=== PATIENT | male | born 1940 | race Caucasian/White ===

== ENCOUNTER → 2017-10-08 | Day surgery (SDC) | payer OTHER ==
[~2017-10-08] MED LIST: ACETAMINOPHEN 1000 MG/100 ML 100 ML IV ONE; ACETAMINOPHEN/HYDROcodone 325 MG/5 MG TAB ONE; BUPIVACAINE/EPINEPHRINE 0.5% PF 30 ML VIAL ONE; GLYCOPYRROLATE 0.2 MG/ML VIAL IV ONE; KETOROLAC TROMETHAMINE 30 MG/ML (IVP) VIAL IV PUSH ONE; LACTATED RINGER'S 1000 ML INJ 1,000 ML ONE; MIDAZOLAM HCL 2 MG/2 ML VIAL ONE; MORPHINE SULFATE 4 MG/ML INJ ONE; NEOSTIGMINE 3 MG/3 ML SYR IV ONE; ONDANSETRON HCL 4 MG/2 ML VIAL IV PUSH ONE; PROPOFOL 100 MG/10 ML INJ IV ONE; ROCURONIUM INJ 50 MG/5 ML VIAL IV ONE; ceFAZolin 2 GM PREMIX 50 ML ONE
--- NOTE | 2017-10-08 14:54 | PD.OP ---
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 The skill set of an LEARNING DESIGN SPECIALIST was medically necessary to provide improved efficiency and safety in the completion of this procedure. The neurosurgical nurse practitioner was at the back table providing appropriate instrumentation while the nurse practitioner directly assisted me through the entirety of the procedure. Indications for procedure This is a 76-year-old gentleman with bilateral inguinal hernias and umbilical hernia. He is experiencing intermittent abdominal and groin discomfort and desired operative repair. 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 Small umbilical hernia defect. Estimated blood loss less than 5 mL. Description of procedure in detail The patient was identified as Chris mason taken to the operating room placed in a supine position. Sequential compression device were placed on bilateral lower extremities. Following induction of adequate general anesthesia the patient's abdomen was prepped and draped in usual sterile fashion with Betadine. A timeout procedure was performed. Following completion timeout procedure everyone's satisfaction within the room local anesthetic was infiltrated in the infraumbilical and periumbilical positions. Small transverse incision was carried out the scalpel. Umbilical skin was lifted up off of herniated preperitoneal fatty tissue. Approximate 1 cm umbilical hernia defect was identified. The preperitoneal fatty tissue was easily reducible. The anterior rectus fascia on the left side was identified and incised its medial margin and a preperitoneal plane was developed with the surgeon's finger directed towards the pubic symphysis. With the patient in slight Trendelenburg position and the preperitoneal dissecting balloon was placed in the preperitoneal space and under direct laparoscopic view inflated to a total of approximately 30 pumps. This allowed identification of symphysis pubis bilateral Reynaldo's ligaments and inferior epigastric vessels. 2 infraumbilical midline 5 mm trochars were then placed into the preperitoneal space under direct laparoscopic view after incision and skin with a scalpel. Attention was turned first to the left side. Using the blunt graspers blunt dissection lateral and posterior the spermatic cord was performed. The anterior medial surface was examined there is an obvious hernia sac attached to the anterior medial surface of the spermatic cord and this was reduced to the base of spermatic cord using the blunt graspers. Posterior laterally spermatic cord lipomatous material was identified and withdrawn from the inguinal canal. There is a moderate to large spermatic cord lipoma. There was no evidence of direct or femoral hernia a 4 x 6" piece of the atrium Prolite mesh was prepared with an anterolateral slit placed around the spermatic cord into the position and held in position with the tacking device. Tack was placed to approximate the anterolateral slit and on the inferior lateral border of Reynaldo's ligament. A 2 x 6" piece of the Prolite mesh was placed across the anterolateral slit and help position with the tacking device. Tacks were placed superior lateral inferior medial and superior medial. Photograph was taken of the completed repair. Attention was then turned to the right side. Using the blunt graspers similar blunt dissection ensued. Along the anterior medial surface of the spermatic cord adherent peritoneum was reduced to the base of spermatic cord. Posterior laterally a large spermatic cord lipoma was withdrawn from the inguinal canal into the preperitoneal space. Small femoral hernia was identified and preperitoneal fatty tissue was withdrawn from the femoral canal. A 4 x 6" piece of atrium Prolite mesh cut with an anterolateral slit was placed surrounding the spermatic cord and tacked position with the tacking device. Tacks placed to approximate the anterolateral slit on the inferior lateral border of Reynaldo's ligament. 2 x 6" piece of mesh was placed across the anterolateral slit and help position with a tacking device. Tacks were placed superior lateral inferior medial and superior medial. Photograph was taken to complete the repair. Care was taken to avoid tach placement inferior laterally on both sides to avoid cutaneous nerve injury. Remaining local anesthetic was placed in the preperitoneal space. Inferior trocar was removed there was no evidence of bleeding from trocar site. During desufflation preperitoneal space the mesh was held against the abdominal wall inferior laterally on both sides. Superior 5 mm trocar was removed and there was no evidence of bleeding from the trocar site. The infra umbilical trocar was then removed. The anterior rectus fascial incision was closed with a running 2-0 Vicryl suture. The umbilical hernia defect which measured slightly less than 1 cm in size was then approximated with 3 interrupted inverted 0 Prolene sutures. The inward projection of the umbilicus was reformed with interrupted 2-0 Vicryl sutures. 2-0 Vicryl was placed in the deep dermis and superficial subcutaneous tissue. Skin was approximated with 4-0 Monocryl septic Euler sutures in each incision site. Mastisol and half-inch brown Steri- Strips were used to cover the incisions. 4 x 4 gauze was customized in size placed within the umbilicus and over the umbilical incision and covered with a Tegaderm. Patient tolerated the procedures without apparent complication. Sponge needle and instrument counts were correct at the end of the case. The patient was transported to the PACU in stable condition. An athletic supporter have been placed on the patient in the operating room. Gil Jaime MD October 08, 2017 14:54
== END | disposition home or self-care (01) ==
LOC: ESDC 12:03
PROVIDERS: ATTEND Surgery Trauma Surgery
DX: K40.20 Bilateral inguinal hernia, without obstruction or gangrene, not specified as recurrent (principal); K42.9 Umbilical hernia without obstruction or gangrene; D17.6 Benign lipomatous neoplasm of spermatic cord
CPT/HCPCS: 00752; 00840; 49650; 49652; C1727; C1781; J0131; J0690; J1885; J2250; J2270; J2405; J2710; J3010; J7120